=== PATIENT | male | born 2000 | race Caucasian/White ===

== ENCOUNTER 2023-04-21 12:12 | Emergency (ER) | payer OTHER ==
[~2023-04-21] VITALS: Ht 167.6 cm; Wt 108.0 kg
[2023-04-21 13:16] VITALS: BP 130/78
== END 2023-04-21 13:18 | disposition home or self-care (01) ==
LOC: ED 12:12
DX: S69.91XA Unspecified injury of right wrist, hand and finger(s), initial encounter (principal); X58.XXXA Exposure to other specified factors, initial encounter
CPT/HCPCS: 73140; 99283-25